=== PATIENT | female | born 1960 | race Caucasian/White ===

== ENCOUNTER → 2017-04-04 | Day surgery (SDC) | payer OTHER ==
[~2017-04-04] VITALS: Ht 152.4 cm; Wt 96.6 kg
[~2017-04-04] MED LIST: 0.9% Sodium Chloride 1,000 ML IV ONE; ATOR20TA PO; LEVO100T6 PO; PRE20 PO; Sodium Chloride LOK Flush 10 mL Syringe IVFLUSH SCH; fentaNYL-PF 50 mCg/mL 2 mL Inj IVPUSH PRN
[2017-04-04 14:13] VITALS: BP 133/84; PULSE 86; RESP 17; O2SAT 94
[2017-04-04 16:07] VITALS: BP 131/67; PULSE 88; RESP 14; O2SAT 93
[2017-04-04 16:16] VITALS: BP 117/77; PULSE 89; RESP 14; O2SAT 97
[2017-04-04 16:28] VITALS: BP 128/74; PULSE 85; RESP 16; O2SAT 98
--- NOTE | 2017-04-04 18:11 | ENDO ---
[address] [address] ENDOSCOPY PROCEDURE PATIENT: ANGEL BERGERON : 1960 MR#: [id number] ADMIT: 04/04/2017 JOB ID: [id number] PREPROCEDURAL DIAGNOSIS: Hematochezia. POSTPROCEDURAL DIAGNOSIS: Hematochezia; ulcerated lesion in the sigmoid colon. PROCEDURE PERFORMED: Colonoscopy with biopsy. SURGEON: Vikki Khan MD INSTRUMENT: [employer] PCF H 180 AL. MEDICATIONS: Versed 7 mg, fentanyl 150 mcg. PREPARATION QUALITY: Good. WITHDRAWAL TIME: 8 minutes. HISTORY OF PRESENT ILLNESS: This is a 56-year-old woman who presented to my office with symptoms of hemorrhoids. Her symptoms had actually improved by the time she saw me with conservative management. She was still experiencing hematochezia and her last colonoscopy had been approximately 12 years prior, but she did not remember the location or findings. Because she is over 50 and her last colonoscopy was greater than 10 years ago, colonoscopy was scheduled. FINDINGS: A single tiny 2 mm ulcer was found in the mucosa at 40 cm, and removed with cold forceps. DESCRIPTION OF PROCEDURE: The patient was brought to the endoscopy suite. A preprocedural pause was performed. She was positioned in the left lateral decubitus position. External examination revealed external hemorrhoids. Moderate anesthesia was induced. The colonoscope was advanced through the anorectal vault. A tiny ulcer on the surface of the colonic mucosa was seen at 40 cm, photographed, and removed with cold forceps. The colonoscope was advanced to the cecum, which was identified by the coalescence of the tenia and the appendiceal orifice. Withdrawal time was 8 minutes. There were no additional polyps, masses, strictures, or mucosal abnormalities. The prep was good. The mucosa was easily visualized. Retroflexed examination of the rectum revealed no enlarged hemorrhoids. The endoscope was removed. The patient tolerated the procedure well. COMPLICATIONS: None. SPECIMENS: Ulcerated lesion at 40 cm. ESTIMATED BLOOD LOSS: None. DISPOSITION: Pending pathology.
--- NOTE | 2017-04-06 12:47 | PATH ---
SURGICAL PATHOLOGY Attending Physician:Vikki Khan MD CASE STATUS: Signed Out PATIENT NAME: ANGEL BERGERON PID: [id number] : 1960 DATE COLLECTED:04/04/2017 00:00 SPECIMEN: Stomach, Biopsy CLINICAL HISTORY: 1). ULCER AT 40 CM BIOPSY FINAL DIAGNOSIS: Colon, Biopsy DIAGNOSIS: Ulcer at 40 cm, Biopsy: Colonic mucosa with a shallow mucosal erosion overlying a benign lymphoid aggregate. Bordering mucosa with reactive glandular changes. Negative for active colitis, granulomas, dysplasia and malignancy. ICD10: K52.9 GROSS DESCRIPTION: The specimen is received in one formalin filled container labeled with the patient's name, sublabeled "ulcer at 40 CM" and consists of a 0.2 x 0.1 x 0.1 CM portion of tissue which is entirely submitted in one cassette. 04/05/2017NM ICD-9 CODES: CPT CODES: 1: 02391 Electronically Signed Out Donovan Pope MD, PhD [facility] Pathology [facility] [address], [place] [address] Technical component performed at [facility], [address] [place] [address] Ave[address], [place], [address]
== END | disposition home or self-care (01) ==
LOC: END 00:32
PROVIDERS: ATTEND Surgery
DX: K63.3 Ulcer of intestine (principal); K92.1 Melena; K64.1 Second degree hemorrhoids; I10 Essential (primary) hypertension; E78.5 Hyperlipidemia, unspecified; E03.9 Hypothyroidism, unspecified; K59.00 Constipation, unspecified; E66.01 Morbid (severe) obesity due to excess calories; Z90.710 Acquired absence of both cervix and uterus; Z87.891 Personal history of nicotine dependence; Z68.41 Body mass index [BMI] 40.0-44.9, adult
CPT/HCPCS: 45380; 99153; G0500; J2250; J3010; J7030